=== PATIENT | male | born 1960 | race Caucasian/White ===

== ENCOUNTER → 2020-12-12 08:55 | Outpatient (CLI) | payer OTHER, SELFPAY ==
[2020-12-12 10:22] LABS: Absolute Lymphocyte Count 1.38 X10^3/uL (0.83-4.51); Basophil# 0.03 X10^3/uL; Basophil% 0.6 % (0-1); Eosinophil# 0.14 X10^3/uL; Eosinophils% 2.7 % (0-5); Hematocrit 43.9 % (40-54); Hemoglobin 14.2 g/dL (13.0-16.5); Lymphocyte # 1.38 X10^3/ul (0.83-4.51); Lymphocyte % 26.8 % (19-41); Mean Corp Hgb Conc 32.3 g/dL (32-36); Mean Corpuscular Hgb 30.3 pg (27.0-32.0); Mean Corpuscular Volume 93.6 fL (80-94); Mean Platelet Vol. 9.6 fl (6.2-12.0); Monocyte# 0.56 X10^3/uL; Monocyte% 10.9 % (0-10); NRBC Flagged by Analyzer 0 % (0-5); Neutrophil # 3.01 X10^3/uL (2.7-7.7); Neutrophil % 58.6 % (47-70); Platelet Count 241 K/mm3 (150-450); RBC Distribution Width CV 12.8 % (11.6-14.6); RBC Distribution Width SD 44.2 fl (35.1-43.9); Red Blood Count 4.69 M/mm3 (4.6-6.2); White Blood Count 5.1 K/mm3 (4.4-11.0)
[2020-12-12 10:47] LABS: AST(SGOT) 18 U/L (15-37); Alanine Aminotransfer ALT/SGPT 21 U/L (16-61); Albumin, Serum 3.7 g/dL (3.2-5.0); Alkaline Phosphatase 81 U/L (45-117); Anion Gap 7 (5-15); BUN 14 mg/dL (7-18); BUN/Creat Ratio 14.8 RATIO (10-20); Calcium,Total 9.1 mg/dL (8.5-10.1); Chloride 102 mmol/L (98-107); Cholesterol 201 mg/dL (200); Creatinine, Serum 0.95 mg/dL (0.70-1.30); EST Glomerular Filtration Rate 86 mL/min (>60); Est Glom Filt Rate - Afr Amer 104 mL/min (>60); Globulin 3.6 g/dL (2.2-4.2); Glucose 112 mg/dL (74-106); High Density Lipoprotein 48 mg/dL; Magnesium 2.4 mg/dL (1.6-2.6); PSA,Total - Annual Screen 0.61 ng/mL (0.00-4.00); Potassium 4.3 mmol/L (3.5-5.1); Protein, Total 7.3 g/dL (6.4-8.2); Sodium Level 138 mmol/L (136-145); Thyroid Stim Hormone (TSH) 0.89 uIU/mL (0.358-3.74); Triglycerides 94 mg/dL; Very Low Density Lipoprotein 19 mg/dL (5-40)
[2020-12-12 10:49] LABS: Microalbumin,Random Urine < 5.0 mg/L (NO RANGE EST.)
[2020-12-14 09:07] LABS: Hemoglobin A1c 5.7 % (3.8-5.6)
== END ==
PROVIDERS: PCP Family Medicine; Visit Provider Family Medicine
DX: I10 Essential (primary) hypertension (principal); Z12.5 Encounter for screening for malignant neoplasm of prostate; R73.09 Other abnormal glucose
CPT/HCPCS: 36415; 80053; 80061; 82043; 82570; 83036; 83735; 84153; 84443; 85025; G0103

== ENCOUNTER 2021-03-29 12:06 | Outpatient (CLI) | payer OTHER, SELFPAY | END 2021-03-29 23:59 | disposition short-term general hospital (02) | PROVIDERS: Visit Provider Nurse Practitioner Family | DX: Z20.822 Contact with and (suspected) exposure to COVID-19 (principal) | CPT/HCPCS: 87635; U0003; U0005 ==

== ENCOUNTER → 2021-10-13 | Outpatient (CLI) | payer SELFPAY | END | disposition home or self-care (01) | PROVIDERS: PCP Family Medicine; Referring Provider Family Medicine; Visit Provider Family Medicine | DX: L03.019 Cellulitis of unspecified finger (principal) | CPT/HCPCS: 87070; 87077; 87186; 87205 ==

== ENCOUNTER → 2022-06-20 | Outpatient (CLI) | payer SELFPAY ==
[2022-06-20 10:39] LABS: Absolute Lymphocyte Count 1.66 X10^3/uL (0.83-4.51); Absolute Neutrophil Count 2.7 X10^3/uL (2.0-7.7); Basophil# 0.03 X10^3/uL; Basophil% 0.6 % (0-1); Eosinophil# 0.14 X10^3/uL; Eosinophils% 2.8 % (0-5); Hematocrit 45.1 % (40-54); Hemoglobin 14.7 g/dL (13.0-16.5); Lymphocyte # 1.66 X10^3/ul (0.83-4.51); Lymphocyte % 33.2 % (19-41); Mean Corp Hgb Conc 32.6 g/dL (32-36); Mean Corpuscular Hgb 30.4 pg (27.0-32.0); Mean Corpuscular Volume 93.2 fL (80-94); Mean Platelet Vol. 9.9 fl (6.2-12.0); Monocyte# 0.46 X10^3/uL; Monocyte% 9.2 % (0-10); NRBC Flagged by Analyzer 0 % (0-5); Neutrophil # 2.69 X10^3/uL (2.7-7.7); Neutrophil % 53.8 % (47-70); Platelet Count 245 K/mm3 (150-450); RBC Distribution Width SD 44.8 fl (35.1-43.9); Red Blood Count 4.84 M/mm3 (4.6-6.2)
[2022-06-20 11:09] LABS: ALB/GLOB Ratio 1.2 RATIO (0.9-2.4); AST(SGOT) 18 U/L (15-37); Alanine Aminotransfer ALT/SGPT 23 U/L (16-61); Albumin, Serum 3.8 g/dL (3.2-5.0); Alkaline Phosphatase 79 U/L (45-117); Anion Gap 3 (5-15); BUN 18 mg/dL (7-18); BUN/Creat Ratio 19.5 RATIO (10-20); Calcium,Total 9.3 mg/dL (8.5-10.1); Chloride 106 mmol/L (98-107); Cholesterol 194 mg/dL (200); Creatinine, Serum 0.92 mg/dL (0.70-1.30); EST Glomerular Filtration Rate 88 mL/min (>60); Est Glom Filt Rate - Afr Amer 106 mL/min (>60); Globulin 3.3 g/dL (2.2-4.2); Glucose 105 mg/dL (74-106); High Density Lipoprotein 49 mg/dL; Potassium 4.2 mmol/L (3.5-5.1); Protein, Total 7.1 g/dL (6.4-8.2); Sodium Level 137 mmol/L (136-145); Thyroid Stim Hormone (TSH) 0.57 uIU/mL (0.358-3.74); Triglycerides 69 mg/dL; Very Low Density Lipoprotein 14 mg/dL (5-40)
[2022-06-20 11:30] LABS: Hemoglobin A1c 5.8 % (3.8-5.6)
== END | disposition home or self-care (01) ==
PROVIDERS: PCP Family Medicine; Visit Provider Family Medicine
DX: I10 Essential (primary) hypertension (principal); R73.02 Impaired glucose tolerance (oral)
CPT/HCPCS: 36415; 80053; 80061; 83036; 84443; 85025

== ENCOUNTER → 2022-12-20 | Outpatient (CLI) | payer SELFPAY ==
[2022-12-20 11:38] LABS: PSA,Total - Annual Screen 0.66 ng/mL (0.00-4.00); T4 Free Direct 0.89 ng/dL (0.76-1.46); Thyroid Stim Hormone (TSH) 1.05 uIU/mL (0.358-3.74)
[2022-12-20 12:33] LABS: Hemoglobin A1c 5.8 % (3.8-5.6)
== END | disposition home or self-care (01) ==
LOC: MFPLAB 08:51
PROVIDERS: PCP Family Medicine; Visit Provider Family Medicine
DX: Z12.5 Encounter for screening for malignant neoplasm of prostate (principal); R73.02 Impaired glucose tolerance (oral); E04.1 Nontoxic single thyroid nodule
CPT/HCPCS: 36415; 83036; 84153; 84439; 84443; G0103

== ENCOUNTER → 2022-12-28 | Outpatient (CLI) | payer SELFPAY ==
--- NOTE | 2022-12-28 09:48 | US_ITS ---
STUDY: THYROID ULTRASOUND REASON FOR EXAM: Male, 62 years old. Thyroid nodule TECHNIQUE: Ultrasound evaluation of the thyroid was performed with real-time and static pool-scale imaging. COMPARISON: None. FINDINGS: RIGHT LOBE: The right lobe of the thyroid gland measures 4.4 cm x 1.9 cm x 1.6 cm. There is a homogeneous echotexture. There are no demonstrated solid, cystic or complex lesions. LEFT LOBE: The left lobe of the thyroid gland measures 4.4 cm x 1.6 cm x 1.4 cm. There is a homogeneous echotexture. There are no demonstrated solid, cystic or complex lesions. ISTHMUS: The isthmus measures 1.4 mm. The regional lymph nodes are normal. US/Thyroid IMPRESSION: Normal ultrasound examination of the thyroid. Electronically Signed: Tom Dooley MD at 14:20 EDT ,
== END | disposition home or self-care (01) ==
PROVIDERS: PCP Family Medicine; Referring Provider Family Medicine; Visit Provider Family Medicine
DX: E04.1 Nontoxic single thyroid nodule (principal)
CPT/HCPCS: 76536

== ENCOUNTER → 2023-06-19 | Outpatient (CLI) | payer SELFPAY ==
[2023-06-19 08:25] LABS: Bacteria 0 SEEN /hpf (None Seen); Mucous, Urine 0 SEEN /hpf (<or=2+); Red Blood Cells-Urine 0 SEEN /hpf (0-5); Squamous Epithelial Cells - UA 0 SEEN /hpf (0-5); White Blood Cells 0 SEEN /hpf (0-5)
[2023-06-19 10:06] LABS: Absolute Lymphocyte Count 1.49 X10^3/uL (0.83-4.51); Absolute Neutrophil Count 2.7 X10^3/uL (2.0-7.7); Basophil# 0.01 X10^3/uL; Basophil% 0.2 % (0-1); Eosinophil# 0.14 X10^3/uL; Eosinophils% 2.9 % (0-5); Hematocrit 42.7 % (40-54); Lymphocyte # 1.49 X10^3/ul (0.83-4.51); Lymphocyte % 30.5 % (19-41); Mean Corp Hgb Conc 32.8 g/dL (32-36); Mean Corpuscular Hgb 30.4 pg (27.0-32.0); Mean Corpuscular Volume 92.6 fL (80-94); Monocyte# 0.53 X10^3/uL; Monocyte% 10.8 % (0-10); NRBC Flagged by Analyzer 0 % (0-5); Neutrophil # 2.71 X10^3/uL (2.7-7.7); Neutrophil % 55.4 % (47-70); Platelet Count 242 K/mm3 (150-450); RBC Distribution Width SD 47.5 fl (35.1-43.9); Red Blood Count 4.61 M/mm3 (4.6-6.2); White Blood Count 4.9 K/mm3 (4.4-11.0)
[2023-06-19 10:19] LABS: Color, Urine Yellow (Yellow); Glucose, Dipstick Normal (Normal); Ketone-Dipstick Negative (Negative); Leukocyte Esterase-Dipstick Negative /ul (Negative); Nitrite-Dipstick Negative (Negative); Occult Blood-Urine Negative /ul (Negative); Protein-Dipstick Negative (Negative); Urine Bilirubin Dipstick Negative (Negative); Urine Clarity Clear (Clear); Urine Urobilinogen Normal (Normal)
[2023-06-19 10:36] LABS: ALB/GLOB Ratio 1.3 RATIO (0.9-2.4); AST(SGOT) 21 U/L (15-37); Alanine Aminotransfer ALT/SGPT 23 U/L (16-61); Albumin, Serum 3.9 g/dL (3.2-5.0); Alkaline Phosphatase 76 U/L (45-117); Anion Gap 4 (5-15); BUN 19 mg/dL (7-18); BUN/Creat Ratio 20.2 RATIO (10-20); Calcium,Total 9.2 mg/dL (8.5-10.1); Chloride 105 mmol/L (98-107); Cholesterol 205 mg/dL (200); Creatinine, Serum 0.94 mg/dL (0.70-1.30); EST Glomerular Filtration Rate 86 mL/min (>60); Est Glom Filt Rate - Afr Amer 104 mL/min (>60); Globulin 3.1 g/dL (2.2-4.2); Glucose 127 mg/dL (74-106); High Density Lipoprotein 62 mg/dL; Potassium 3.9 mmol/L (3.5-5.1); Sodium Level 138 mmol/L (136-145); Triglycerides 56 mg/dL; Very Low Density Lipoprotein 11 mg/dL (5-40)
[2023-06-19 11:03] LABS: Hemoglobin A1c 5.6 % (3.8-5.6)
== END | disposition home or self-care (01) ==
LOC: MFPLAB 08:24
PROVIDERS: PCP Family Medicine; Visit Provider Family Medicine
DX: I10 Essential (primary) hypertension (principal); R73.02 Impaired glucose tolerance (oral)
CPT/HCPCS: 36415; 80053; 80061; 81001; 83036; 85025

== ENCOUNTER → 2023-11-29 | Outpatient (CLI) | payer MEDICARE, SELFPAY ==
[2023-11-29 09:35] LABS: Bacteria 0 SEEN /hpf (None Seen); Mucous, Urine 0 SEEN /hpf (<or=2+); Red Blood Cells-Urine 0 SEEN /hpf (0-5); Squamous Epithelial Cells - UA 0 SEEN /hpf (0-5); White Blood Cells 0 SEEN /hpf (0-5)
[2023-11-29 11:59] LABS: Absolute Lymphocyte Count 1.61 X10^3/uL (0.83-4.51); Absolute Neutrophil Count 2.6 X10^3/uL (2.0-7.7); Basophil# 0.04 X10^3/uL; Basophil% 0.8 % (0-1); Eosinophil# 0.13 X10^3/uL; Eosinophils% 2.6 % (0-5); Hematocrit 44.5 % (40-54); Hemoglobin 14.3 g/dL (13.0-16.5); Lymphocyte # 1.61 X10^3/ul (0.83-4.51); Lymphocyte % 32.4 % (19-41); Mean Corp Hgb Conc 32.1 g/dL (32-36); Mean Corpuscular Hgb 30.2 pg (27.0-32.0); Mean Corpuscular Volume 93.9 fL (80-94); Monocyte# 0.56 X10^3/uL; Monocyte% 11.3 % (0-10); NRBC Flagged by Analyzer 0 % (0-5); Neutrophil # 2.61 X10^3/uL (2.7-7.7); Neutrophil % 52.5 % (47-70); Platelet Count 246 K/mm3 (150-450); RBC Distribution Width CV 13.2 % (11.6-14.6); RBC Distribution Width SD 46.1 fl (35.1-43.9); Red Blood Count 4.74 M/mm3 (4.6-6.2)
[2023-11-29 12:09] LABS: Color, Urine Yellow (Yellow); Glucose, Dipstick Normal (Normal); Ketone-Dipstick Negative (Negative); Leukocyte Esterase-Dipstick Negative /ul (Negative); Nitrite-Dipstick Negative (Negative); Occult Blood-Urine Negative /ul (Negative); Protein-Dipstick Negative (Negative); Urine Bilirubin Dipstick Negative (Negative); Urine Clarity Clear (Clear); Urine Urobilinogen Normal (Normal)
[2023-11-29 13:06] LABS: ALB/GLOB Ratio 1.1 RATIO (0.9-2.4); AST(SGOT) 22 U/L (15-37); Alanine Aminotransfer ALT/SGPT 22 U/L (16-61); Albumin, Serum 3.7 g/dL (3.2-5.0); Alkaline Phosphatase 78 U/L (45-117); Anion Gap 4 (5-15); BUN 18 mg/dL (7-18); BUN/Creat Ratio 20.3 RATIO (10-20); Calcium,Total 9.5 mg/dL (8.5-10.1); Chloride 104 mmol/L (98-107); Cholesterol 215 mg/dL (200); Creatinine, Serum 0.89 mg/dL (0.70-1.30); EST Glomerular Filtration Rate 91 mL/min (>60); Est Glom Filt Rate - Afr Amer 111 mL/min (>60); Globulin 3.4 g/dL (2.2-4.2); Glucose 116 mg/dL (74-106); High Density Lipoprotein 64 mg/dL; PSA,Total- Diagnostic 0.75 ng/mL (0.0-4.0); Potassium 3.9 mmol/L (3.5-5.1); Protein, Total 7.1 g/dL (6.4-8.2); Sodium Level 138 mmol/L (136-145); Triglycerides 57 mg/dL; Very Low Density Lipoprotein 11 mg/dL (5-40)
== END | disposition home or self-care (01) ==
LOC: MFPLAB 09:32
PROVIDERS: PCP Family Medicine; Visit Provider Family Medicine
DX: I10 Essential (primary) hypertension (principal); Z12.5 Encounter for screening for malignant neoplasm of prostate; R73.02 Impaired glucose tolerance (oral)
CPT/HCPCS: 36415; 80053; 80061; 81001; 83036; 84153; 85025

== ENCOUNTER → 2024-06-02 | Outpatient (CLI) | payer MEDICARE, OTHER, SELFPAY ==
[2024-06-02 08:28] LABS: Bacteria 0 SEEN /hpf (None Seen); Mucous, Urine 0 SEEN /hpf (<or=2+); Squamous Epithelial Cells - UA 0 SEEN /hpf (0-5)
[2024-06-02 12:57] LABS: Absolute Lymphocyte Count 1.63 X10^3/uL (0.83-4.51); Absolute Neutrophil Count 2.8 X10^3/uL (2.0-7.7); Basophil# 0.04 X10^3/uL; Basophil% 0.8 % (0-1); Eosinophil# 0.14 X10^3/uL; Eosinophils% 2.8 % (0-5); Hematocrit 41.2 % (40-54); Hemoglobin 13.4 g/dL (13.0-16.5); Lymphocyte # 1.63 X10^3/ul (0.83-4.51); Mean Corp Hgb Conc 32.5 g/dL (32-36); Mean Corpuscular Volume 92.4 fL (80-94); Mean Platelet Vol. 10.5 fl (6.2-12.0); Monocyte# 0.49 X10^3/uL; Monocyte% 9.6 % (0-10); NRBC Flagged by Analyzer 0 % (0-5); Neutrophil # 2.77 X10^3/uL (2.7-7.7); Neutrophil % 54.4 % (47-70); Platelet Count 203 K/mm3 (150-450); RBC Distribution Width CV 13.9 % (11.6-14.6); RBC Distribution Width SD 47.6 fl (35.1-43.9); Red Blood Count 4.46 M/mm3 (4.6-6.2); White Blood Count 5.1 K/mm3 (4.4-11.0)
[2024-06-02 12:58] LABS: Color, Urine Yellow (Yellow); Glucose, Dipstick Normal (Normal); Ketone-Dipstick Negative (Negative); Leukocyte Esterase-Dipstick Negative /ul (Negative); Nitrite-Dipstick Negative (Negative); Occult Blood-Urine 10 /ul (Negative); Protein-Dipstick Negative (Negative); Urine Bilirubin Dipstick Negative (Negative); Urine Clarity Clear (Clear); Urine Urobilinogen Normal (Normal)
[2024-06-02 13:14] LABS: Hemoglobin A1c 5.9 % (<=5.6)
[2024-06-02 13:28] LABS: Red Blood Cells-Urine 0-5 SEEN /hpf (0-5); White Blood Cells 0-5 SEEN /hpf (0-5)
[2024-06-02 13:31] LABS: ALB/GLOB Ratio 1.7 RATIO (0.9-2.4); AST(SGOT) 20 U/L (<=37); Alanine Aminotransfer ALT/SGPT 12 U/L (<=46); Albumin, Serum 4.1 g/dL (3.4-4.8); Alkaline Phosphatase 74 U/L (40-129); Anion Gap 12 (5-15); BUN 17 mg/dL (4-19); BUN/Creat Ratio 19.9 RATIO (10-20); Calcium,Total 9.3 mg/dL (7.6-11.0); Carbon Dioxide 24.3 mmol/L (21.0-32.0); Chloride 104 mmol/L (98-108); Cholesterol 186 mg/dL (<=200); Creatinine, Serum 0.86 mg/dL (0.70-1.20); EST Glomerular Filtration Rate 96 (>60); Globulin 2.4 g/dL (2.2-4.2); Glucose 105 mg/dL (70-99); High Density Lipoprotein 57 mg/dL; Low Density Lipoprotein Calc. 119 mg/dL; Protein, Total 6.5 g/dL (5.9-8.4); Sodium Level 140 mmol/L (133-145); Total Bilirubin 0.52 mg/dL (0.00-1.30); Triglycerides 47 mg/dL; Very Low Density Lipoprotein 9 mg/dL (5-40); cholesterol:hdl ratio screen 3.25
== END | disposition home or self-care (01) ==
PROVIDERS: PCP Family Medicine; Referring Provider Family Medicine; Visit Provider Family Medicine
DX: I10 Essential (primary) hypertension (principal); R73.02 Impaired glucose tolerance (oral)
CPT/HCPCS: 36415; 80053; 80061; 81001; 83036; 85025

== ENCOUNTER → 2024-12-01 | Outpatient (CLI) | payer MEDICARE, OTHER, SELFPAY ==
[2024-12-01 10:28] LABS: PSA,Total - Annual Screen 0.68 ng/mL (0.02-4.00)
== END | disposition home or self-care (01) ==
LOC: MFPLAB 09:01
PROVIDERS: PCP Family Medicine; Visit Provider Family Medicine
DX: Z12.5 Encounter for screening for malignant neoplasm of prostate (principal)
CPT/HCPCS: 36415; 84153; G0103

== ENCOUNTER 2025-02-22 00:20 | Emergency (ER) | payer MEDICARE, OTHER, SELFPAY ==
--- OUTSIDE RECORDS SUMMARY | 2025-02-17 03:07 | XMS RPT_ITS ---
Author Name Auto Generated Organization [facility] Care Team Providers Care Stock Feeder Name Role Phone ELENA MILES, GALINA Rubi Attending Physician Ashwina javed BAILEY MD, PAULINE Primary Care Physician Unavail able LEO ROUSE, PAULINE Primary Care Physician Unavail able ELENA MILES, GALINA Rubi Attending Physician David burt RESULTS ENCOUNTERS ADMIT/DISCHARGE ACCOUNT NUMBER ADMITTING ENCOUNTER CLASS LOC ATION SOURCE 02/17/2025/ 5 [id number] Ambulatory [facility] MAINBuilding: OSDURoom: 0001Bed: D [facility] 02/04/2025/ 5 [id number] [facility] MAINBuilding: [place] [facility] PAYERS ENCOUNTER GUARANTOR PAYER SUBSCRIBER SOURCE 02/17/2025 ISI DAWKINS: [id number] [place] [address]~[email or web address]: (HP) (WP) Primary Insurance:MEDICARE PART B INSCOPolicy Number: [id number] Date:[id number] Name:[address] [address] [address]CV: ISI DAWKINS: [id number] [place], [place] [address]Dcb: (HP) (WP) [facility] 02/17/2025 ISI DAWKINS: [id number] [place] [address]~[email or web address]: (HP) (WP) Secondary Insurance:CIGNA SUPPLEMENTAL INSCOPolicy Number: [id number] Date:[id number] Name:DEPUTY FELONY CLERKSavannah Tarango [place] [address]CL: ISI RICCIDOB: [id number] KEIRY [place] [address]Fig: (HP) (WP) [facility] 02/04/2025 ISI HOOPERB: [id number] [place] [email or web address]: (HP) (WP) Primary Insurance:MEDICARE PART B INSCOPolicy Number: [id number] Date:[id number] Name:[facility] [address] [address]SQ: ISI RICCIDOB: [id number] [place] [address]Usr: (HP) (WP) [facility] 02/04/2025 ISI HOOPERB: [id number] [place] [email or web address]: (HP) (WP) Secondary Insurance:CIGNA SUPPLEMENTAL INSCOPolicy Number: [id number] Date:[id number] Name:CPO Geoffrey Tarango [place] [address]QF: ISI RICCIDOB: [id number] K[place]ERY [place] [id number]: (HP) (WP) [facility]
[2025-02-22 00:21] VITALS: BP 112/84; PULSE 79; RESP 16; TEMP 35.5; O2SAT 97; BMI 23.8
--- NOTE | 2025-02-22 00:53 | RAD_ITS ---
PROCEDURE: FOOT MIN 3 VIEWS 02/22/2025 REASON FOR EXAM: INJURY TECHNIQUE: Procedure Code: RADFO Modality: DX Procedure: FOOT MIN 3 VIEWS COMPARISON: None. FINDINGS: Detached bone fragment adjacent to the tip of the distal phalanx of the 2nd toe. Overlying soft tissue edema and swelling. Moderate to severe degenerative joint disease of the 1st metatarsophalangeal joint. Mild hallux valgus deformity. Mild hammertoes deformities of the 2nd through 5th toes. Calcaneal spur formation. Enthesophyte formation at the calcaneal insertion of Achilles tendon. Mild osteopenia of the visualized bones. Degenerative joint disease. No other fracture or dislocation is seen. No lytic or blastic bone lesion is noted. RAD/Foot min 3 Views IMPRESSION: Detached bone fragment adjacent to the tip of the distal phalanx of the 2nd toe . Overlying soft tissue edema and swelling. Reading [facility]
--- NOTE | 2025-02-22 00:53 | EKG12_ITS ---
Test Reason : SYNCOPE Blood Pressure : */* mmHG Vent. Rate : 65 BPM Atrial Rate : 65 BPM P-R Int : 186 ms QRS Dur : 96 ms QT Int : 446 ms P-R-T Axes : 52 73 48 degrees QTcB Int : 463 ms Normal sinus rhythm Normal ECG Confirmed by Han Chavarria ([id number]), supervising editor news reel [place] [facility] ([id number]) on 02/23/2025 10:01:52 AM Referred By: Confirmed By: Han Chavarria
[2025-02-22 01:07] LABS: Hematocrit 42.3 % (40-54); Hemoglobin 14.1 g/dL (13.0-16.5); Immature Granulocytes Count 0.090 X10^3/uL (0.0-0.0); Mean Corp Hgb Conc 33.3 g/dL (32-36); Mean Corpuscular Volume 89.6 fL (80-94); Mean Platelet Vol. 10.1 fl (6.2-12.0); NRBC Flagged by Analyzer 0 % (0-5); Platelet Count 248 K/mm3 (150-450); RBC Distribution Width CV 12.8 % (11.6-14.6); RBC Distribution Width SD 42.4 fl (35.1-43.9); Red Blood Count 4.72 M/mm3 (4.6-6.2); White Blood Count 9.4 K/mm3 (4.4-11.0)
[2025-02-22] MEDS: 0.9% Normal Saline (1000mL) 1,000 ML 999 ML IV (01:08)
[2025-02-22 01:46] LABS: AST(SGOT) 24 U/L (<=37); Alanine Aminotransfer ALT/SGPT 18 U/L (<=46); Albumin, Serum 4.1 g/dL (3.4-4.8); Alkaline Phosphatase 76 U/L (40-129); Anion Gap 16 (7-18); BUN 19 mg/dL (4-19); BUN/Creat Ratio 18.4 RATIO (10-20); Bilirubin, Direct 0.18 mg/dL (0.00-0.30); Calcium,Total 9.4 mg/dL (7.6-11.0); Carbon Dioxide 20.0 mmol/L (20.0-29.0); Chloride 102 mmol/L (96-106); Estimated Creatinine Clearance 68.92 ml/min (50-250); Globulin 2.7 g/dL (2.2-4.2); Glucose 199 mg/dL (70-99); Lipase 26 U/L (13-75); Magnesium 1.8 mg/dL (1.5-2.2); Potassium 4.0 mmol/L (3.5-5.1)
--- NOTE | 2025-02-22 02:09 | EDS_ITS ---
HPI History of Present Illness Chief Complaint: Nausea/Vomiting Informant: patient and spouse/S.O. Narrative Narrative: Patient is a 64-year-old male with history of hypertension. He states he recently had surgery on his left foot and has to use crutches as he is not allowed to weight-bear on it. He states this evening he was in the shower and as he went to step over a towel on the floor with his crutches he lost his balance and fell. He states as he did this somehow he caught his right second toe on the ground and he felt/heard a "snap". He states that he thought his toe was dislocated and so he grabbed it and tried moving it and when he did so he was met with intense pain and then had bouts of nausea and vomiting. He states he called out for his and by the time she got to him he was unconscious. He states he awoke spontaneously just a minute or so later and knew who he was and where he was at. He states he is unsure of what led to his bouts of vomiting and/or passing out but as he was concerned this could potentially be cardiac in nature EMS was called and he was brought in for evaluation [facility] Medical History (Updated 02/22/25 @ 05:[address] Martin Salinas, ) Hypertension Allergy/AdvReac Type Severity Reaction Status Date / Time No Known Allergies Allergy Verified 02/22/25 00:23 Surgical History (Updated 02/22/25 @ 00:25 by Kellee Hawkins) Hx of foot surgery Social History Smoking Status: Never smoker [facility] ED Constitutional Constitutional ED: Denies chills or fever(s) ENT ENT ED: Denies sore throat Cardiovascular Cardiovascular: Reports other Details: Positive syncope ; Denies chest pain, palpitations or racing heartbeat Respiratory/Chest Respiratory/Chest: Denies cough or dyspnea Gastrointestinal Gastrointestinal: Reports nausea and vomiting; Denies abdominal pain or diarrhea Musculoskeletal Musculoskeletal: Reports other Details: Positive right foot/toe pain ; Denies back pain or neck pain Integumentary Reports other Details: Positive swelling and ecchymosis right second toe Neurologic Neurologic: Denies headache(s) Psychiatric Psychiatric: Reports anxiety Hematologic/Lymphatic Hematologic/Lymphatic: Denies easy bleeding or easy bruising EXAM Physical Exam Const Vital Signs: 02/22/25 00:21 02/22/25 02:24 Temperature 96 F L 96 F L Temperature Source Oral Pulse Rate 79 79 Respiratory Rate 16 16 Blood Pressure 112/84 H 112/84 H Blood Pressure Mean 93 93 Pulse Ox 97 97 Oxygen Delivery Method Room Air Positive well nourished and well developed General Appearance ED: well developed; Negative for pallor HEENT HEENT Narrative: Normocephalic atraumatic No tongue or cheek biting noted to suggest seizure activity No sign of infection noted in the posterior pharynx Eyes PERRL and EOMs intact bilaterally General Eye ED: Negative for scleral icterus Neck supple Neck Narrative: No bony deformity or step-off of the cervical spine No midline tenderness to palpation No nuchal rigidity noted Resp normal respiratory effort and clear to auscultation bilaterally Cardio regular rate and regular rhythm Rate: other Other Details: Heart is regular rate and rhythm without murmurs rubs or gallops Radial and carotid pulses are equal and symmetric GI normal to inspection, nondistended, normoactive bowel sounds, non-tender, non- distended and no masses GI Narrative: No voluntary guarding or rigidity or pulsatile mass Auscultation: normoactive bowel sounds Palpation: soft Extremity Extremity Narrative: Right lower extremity is neurovascularly intact. There is soft tissue swelling with ecchymosis to the right second toe. No obvious bony deformity. No subungual hematoma noted. All compartments are soft and compressible going against compartment syndrome Pelvis is stable there is no shortening or external rotation of either lower extremity Neuro oriented x3, CN's II-XII intact bilaterally and no sensory deficits noted Sensorium / Orientation: alert Psych Mood & Affect: anxious Skin no rashes or lesions noted Skin Narrative: Soft tissue swelling with ecchymosis to the right second toe as documented above General Skin Exam: Negative for jaundice or pallor MDM MDM MDM Narrative Medical decision making narrative: Patient arrived to the ER with stable vitals. He reported a mechanical fall which led to a right second toe injury and following the injury he developed bouts of nausea and vomiting and then a syncopal event. As he nausea and vomiting only occurred after the onset of pain I have low concern that this is infectious in nature such as a viral stomach infection like norovirus or rotavirus and do not feel the need to obtain a CT scan of the abdomen and pelvis. With the bout of syncope occurring after nausea and vomiting this is most likely vasovagal introduced by his retching. However in order to ensure there are no signs of ACS or cardiac dysrhythmia an EKG was obtained. In order to assess for electrolyte abnormality acute kidney injury or potential pancreatitis or biliary colic basic blood work was ordered. Labs revealed no clinically significant finding. An x-ray of the right foot was obtained to confirm fracture which did show complete avulsion of the distal phalanx of the second digit consistent with his history and exam. However the patient is closed and neurovascularly intact so therefore there is no need for emergent podiatry consultation. After receiving IV fluid and Ativan he reported feeling much better and vitals were stable. We did discuss potential CT scan of the brain but without signs of trauma or history of bleeding disorder or blood thinner use concern for a subarachnoid or subdural hemorrhage is low and patient does not want a CT scan of his head. Therefore at this time his vitals are stable his overall workup is negative except for his x-ray confirming toe fracture. Without signs of open fracture or neurovascular compromise there is no need for further intervention and he is otherwise safe for discharge History & Record Review Discussion w/independent historian: Patient and Family Lab Data Attestation: I reviewed the patient's lab results. Labs: Laboratory Results - last 24 hr 02/22/25 00:32 WBC 9.4 RBC 4.72 Hgb 14.1 Hct 42.3 MCV 89.6 MCH 29.9 MCHC 33.3 RDW Std Deviation 42.4 RDW Coeff of Henrry 12.8 Plt Count 248 MPV 10.1 Immature Gran % (Auto) 1.000 H Neut % (Auto) 67.6 Lymph % (Auto) 21.3 Hinds % (Auto) 8.0 Eos % (Auto) 1.7 Baso % (Auto) 0.4 Absolute Neuts (auto) 6.4 Absolute Lymphs (auto) 2.01 Nucleated RBC % 0 Sodium 138 Potassium 4.0 Chloride 102 Carbon Dioxide 20.0 Anion Gap 16 BUN 19 Creatinine 1.02 Estim Creat Clear Calc 68.92 Est GFR (MDRD) Non-Af 81 BUN/Creatinine Ratio 18.4 Glucose 199 H Calcium 9.4 Magnesium 1.8 Total Bilirubin 0.43 Direct Bilirubin 0.18 AST 24 ALT 18 Alkaline Phosphatase 76 Total Protein 6.7 Albumin 4.1 Globulin 2.7 Lipase 26 Radiography Diagnostic Testing: Clinical Impression(s) from Imaging Studies Foot X-Ray 02/22/25 00:53 IMPRESSION: Detached bone fragment adjacent to the tip of the distal phalanx of the 2nd toe. Overlying soft tissue edema and swelling. Reading Location: [place] [id number] Right foot x-ray as interpreted by the emergency medicine physician reveals a detached fracture of the distal phalanx of the right second toe Discharge Plan Triage Chief Complaint: Nausea/Vomiting ED Provider: Martin Salinas Dx/Rx/DC Orders Clinical Impression: Closed fracture of phalanx of right second toe, Syncope, Hypertension, Nausea and vomiting Instructions: Causes of Syncope, ED Closed Toe Fracture Primary Care Provider: Kevin Wall Referrals: Kevin Wall MD [Primary Care Provider, Family Practice] Asif Bentley DPM [Med Staff - Courtesy Staff, Podiatry] Activity Restrictions/Additional Instructions: Please wear your postoperative shoe secondary to your right second toe fracture. Follow-up with your l d rn to discuss other treatment options such as simple bracing versus need for K wire/surgery. Your workup today revealed no sign of abnormal heart rhythm or abnormal labs indicating that your passing out event was most likely due to a vagal response which is slowing of the heart rate from pain and nausea. Continue all of your home medications as directed by your doctor and return to the ER should you have any further concern Print Language: Italian Disposition Disposition: Home, Self Care Discharge Date/Time: 02/22/25 02:24
[2025-02-22 02:24] VITALS: BP 112/84; PULSE 79; RESP 16; TEMP 35.5; O2SAT 97
== END 2025-02-22 02:24 | disposition home or self-care (01) ==
PROVIDERS: Emergency Provider Emergency Medicine; PCP Family Medicine; Visit Provider Emergency Medicine
DX: S92.511A Displaced fracture of proximal phalanx of right lesser toe(s), initial encounter for closed fracture (principal); R55 Syncope and collapse; R11.2 Nausea with vomiting, unspecified; I10 Essential (primary) hypertension
CPT/HCPCS: 73630; 80048; 80076; 83690; 83735; 85025; 93005; 96361; 96374; 99285; A4216